=== PATIENT | female | born 1970 | race Caucasian/White ===

== ENCOUNTER 2020-03-01 20:05 | Emergency (ER) | payer BC, OTHER ==
[~2020-03-01] VITALS: Ht 162.6 cm; Wt 88.6 kg
[2020-03-01] MEDS ORDERED: LISI10TA15 PO (20:25)
[2020-03-01] MEDS ORDERED: BIOT50005 SL (20:25)
[2020-03-01] MEDS ORDERED: MULTCAP PO (20:25)
[2020-03-01] MEDS ORDERED: DULO1CAP6 PO (20:25)
[2020-03-01] MEDS ORDERED: PANT40TA29 PO (20:25)
[2020-03-01] MEDS ORDERED: fentaNYL 100 MCG/2 ML INJECTION (J3010) IV ONE (20:45)
--- NOTE | 2020-03-01 21:42 | REPVR ---
PROCEDURE INFORMATION: Exam: XR Left Tibia and Fibula Exam date and time: 03/01/2020 9:16 PM Age: 49 years old Clinical indication: Injury or trauma; Fall; Sprain or strain; Lower leg; Left; Additional info: Fall injury; Lle pain TECHNIQUE: Imaging protocol: XR Left tibia and fibula. Views: 2 views. COMPARISON: No relevant prior studies available. FINDINGS: Bones/joints: Comminuted fracture of the mid fibula with mild displacement of fragments. The major distal fracture fragment is well-aligned with the proximal major fragment. Minimal inferior calcaneal spurring is noted. Soft tissues: Normal. IMPRESSION: Comminuted fracture of the mid fibula with mild displacement of the comminuted fragments. Electronically signed by: Aleksandar Ojeda On 03/01/2020 21:41:46 PM
--- NOTE | 2020-03-01 21:43 | REPVR ---
PROCEDURE INFORMATION: Exam: XR Left Knee Exam date and time: 03/01/2020 9:16 PM Age: 49 years old Clinical indication: Injury or trauma; Fall; Sprain or strain; Lower leg; Left; Additional info: Fall injury; Lle pain TECHNIQUE: Imaging protocol: XR Left knee. Views: 4 or more views. COMPARISON: No relevant prior studies available. FINDINGS: Bones/joints: Slightly displaced fracture of the proximal fibula. No joint effusion. Soft tissues: Slight adjacent subcutaneous edema about the proximal fibula. IMPRESSION: 1. Slightly displaced fracture of the proximal fibula with slight adjacent subcutaneous edema. 2. Otherwise negative left knee. Electronically signed by: Aleksandar Ojeda On 03/01/2020 21:43:27 PM
--- NOTE | 2020-03-01 21:44 | REPVR ---
PROCEDURE INFORMATION: Exam: XR Left Femur Exam date and time: 03/01/2020 9:16 PM Age: 49 years old Clinical indication: Injury or trauma; Fall; Sprain or strain; Lower leg; Left; Additional info: Fall injury; Lle pain TECHNIQUE: Imaging protocol: XR Left femur. Views: 2 views. COMPARISON: No relevant prior studies available. FINDINGS: Bones/joints: Unremarkable. No acute fracture. Soft tissues: Unremarkable. IMPRESSION: Negative left femur. Electronically signed by: Aleksandar Ojeda On 03/01/2020 21:44:37 PM
--- NOTE | 2020-03-01 21:45 | REPVR ---
PROCEDURE INFORMATION: Exam: XR Left Ankle Exam date and time: 03/01/2020 9:16 PM Age: 49 years old Clinical indication: Injury or trauma; Fall; Sprain or strain; Lower leg; Left; Additional info: Fall injury; Lle pain TECHNIQUE: Imaging protocol: XR Left ankle. Views: 3 or more views. COMPARISON: No relevant prior studies available. FINDINGS: Bones/joints: Minimal inferior calcaneal spurring. Soft tissues: Normal. IMPRESSION: 1. Minimal inferior calcaneal spurring. 2. Otherwise negative left ankle. Electronically signed by: Aleksandar Ojeda On 03/01/2020 21:45:40 PM
[2020-03-01] MEDS ORDERED: PERC5TAB12 PO (22:44)
[2020-03-01] MEDS ORDERED: OXYCODONE/APAP 5MG/325MG(BULK FOR ED) 1 TABLET PO ONE (22:45)
[2020-03-01 23:30] VITALS: BP 131/74
== END 2020-03-01 23:44 | disposition home or self-care (01) ==
LOC: M ED 20:05
DX: S82.452A Displaced comminuted fracture of shaft of left fibula, initial encounter for closed fracture (principal); W17.89XA Other fall from one level to another, initial encounter; Y92.018 Other place in single-family (private) house as the place of occurrence of the external cause; Y99.9 Unspecified external cause status; K31.9 Disease of stomach and duodenum, unspecified; F33.9 Major depressive disorder, recurrent, unspecified; Z88.1 Allergy status to other antibiotic agents; Z79.899 Other long term (current) drug therapy
CPT/HCPCS: 73552; 73564; 73590; 73610; 96374; 99284; J3010